=== PATIENT | female | born 1950 | race Caucasian/White ===

== ENCOUNTER → 2017-10-05 | Outpatient (CLI) | payer BC, MEDICARE | LOC: MC.RAD 14:17 | DX: Z12.31 Encounter for screening mammogram for malignant neoplasm of breast (principal) ==

== ENCOUNTER → 2019-07-04 | Outpatient (CLI) | payer BC, MEDICARE | LOC: MC.RAD 13:39 | DX: Z12.31 Encounter for screening mammogram for malignant neoplasm of breast (principal) ==

== ENCOUNTER → 2023-01-28 | Outpatient (RCR) | payer BC, MEDICARE | END | disposition home or self-care (01) | LOC: WSPT → WSC 01-14 13:30 → WSPT 01-19 15:00 | DX: M54.42 Lumbago with sciatica, left side (principal) ==

== ENCOUNTER 2023-02-25 15:00 | Outpatient (RCR) | payer BC | END 2023-02-27 | disposition home or self-care (01) | LOC: WSPT | DX: M54.42 Lumbago with sciatica, left side (principal) | CPT/HCPCS: G0283-GP ==